=== PATIENT | female | born 1950 | race Caucasian/White ===

== ENCOUNTER 2019-02-16 13:49 | Emergency (ER) | payer SELFPAY ==
[~2019-02-16] VITALS: Ht 160 cm; Wt 79.5 kg
[2019-02-16 14:05] VITALS: BP 114/58
== END 2019-02-16 16:54 | disposition left against medical advice (07) ==
LOC: EMS 13:57
DX: R10.9 Unspecified abdominal pain (principal); Z53.21 Procedure and treatment not carried out due to patient leaving prior to being seen by health care provider